=== PATIENT | female | born 1965 | race Caucasian/White ===

== ENCOUNTER → 2020-04-30 10:41 | Outpatient (CLI) | payer BC, SELFPAY ==
--- NOTE | ~2020-04-30 | XR_ITS ---
XR hip LT min 2V DATE: 04/30/2020 10:59 INDICATION: Left hip pain TECHNIQUE: AP, lateral, crosstable lateral views of left hip COMPARISON: None FINDINGS: No fracture or dislocation, avascular necrosis or bone destruction of the left hip. Mild le ft hip osteoarthritis. Normal alignment at the left sacroiliac joint and pubic symphysis. IMPRESSION: Mild left hip osteoarthritis Reviewed, dictated and finalized at location B. CIPAL IOS DEVELOPER
== END ==
PROVIDERS: PCP Internal Medicine; Visit Provider Internal Medicine
DX: S79.812A Other specified injuries of left hip, initial encounter (principal); M16.12 Unilateral primary osteoarthritis, left hip; W19.XXXA Unspecified fall, initial encounter
CPT/HCPCS: 73502

== ENCOUNTER 2022-02-08 07:00 | Outpatient (NON) | payer BC, SELFPAY | END 2022-02-08 07:01 | disposition home or self-care (01) | LOC: ANHLAB 02-10 14:16 | PROVIDERS: PCP Internal Medicine | DX: D10.39 Benign neoplasm of other parts of mouth (principal) | CPT/HCPCS: 88305 ==

== ENCOUNTER 2022-04-30 08:01 | Outpatient (CLI) | payer BC, SELFPAY ==
--- NOTE | ~2022-04-30 | US_ITS ---
EXAMINATION: US pelvic complete w TV DATE: 04/30/2022 10:48 INDICATION: Right lower quadrant pain. History of breast cancer. Comparison:No prior studies for comparison. TECHNIQUE: Multiple transabdominal and endovaginal sonographic images of the pelvis performed. FINDINGS: The uterus measures 6.5 x 4.4 x 3 cm. The endometrial complex measures 3 mm. The ovaries are not identified due to overlying bowel gas and patient body habitus. No adnexal masses or fluid collections are seen. There is no free fluid in the pelvis. There are no abnormal masses seen on either side. IMPRESSION: 1. Unremarkable pelvic ultrasound. Reviewed, dictated and finalized at location A. N ELECTRONIC TECHNICIAN
--- NOTE | ~2022-04-30 | US_ITS ---
EXAMINATION: US_ABDRLQ_US DATE: 04/30/2022 08:55 INDICATION: Right lower quadrant abdominal pain. TECHNIQUE: Multiple transabdominal sonographic images of the abdomen were obtained. COMPARISON: None. FINDINGS: There is no abnormal mass in the right lower quadrant of the abdomen. The appendix is not identified. IMPRESSION: 1. Appendix not identified. Reviewed, dictated and finalized at location A. ING SPECIALIST IMPRESSION: 1. Appendix not identified.
== END 2022-04-30 08:02 | disposition home or self-care (01) ==
PROVIDERS: PCP Internal Medicine; Visit Provider Nurse Practitioner Family
DX: R10.31 Right lower quadrant pain (principal); Z85.3 Personal history of malignant neoplasm of breast
CPT/HCPCS: 76705; 76830; 76856

== ENCOUNTER 2022-07-08 00:25 | Day surgery (SDC) | payer BC, SELFPAY ==
[2022-05-31 15:08] VITALS: BMI 27.5
[2022-06-27 15:08] VITALS: BMI 27.1
--- NOTE | 2022-07-07 15:02 | PM.HPGS ---
History of Present Illness History of Present Illness Consent: Risks, benefits, and alternatives have been discussed and questions answered. Patient agrees to proceed with procedure. Chief complaint: RLQP Narrative: Elza Morin is a 56 year old female Referred for investigation of right lower quadrant pain in to rule out inflammatory bowel disease. She has had no weight loss or significant change in bowel habits. The pain began about 1 month ago. Her last colonoscopy was 8 years ago. Review of Systems Review of Systems: All systems reviewed & are unremarkable except as noted in HPI and below PMFSH Past Medical History Medical History Abdominal discomfort in right lower quadrant Breast cancer Hx of breast cancer Hypercholesteremia Postmenopausal Screening for colon cancer Screening for osteoporosis Serum calcium elevated Serum potassium elevated Vitamin D deficiency, unspecified Surgical History Surgical History H/O partial mastectomy 2012 Family History Family History Father Hypertension Mother Family history of elevated blood lipids Other Family history of cardiovascular disease Social History Social History Smoking status: Never smoker Alcohol intake: never Substance use: never Substance use type: does not use Lack of Transportation: No Lack of Food: Never True Current Housing: I Have Housing Concerned About Future Housing: No Difficulty Paying Gas/Electric Bills: No Difficulty Paying for Meds: No Currently Unemployed: No Education: Associate Degree Difficulty w/ Childcare or Family Care: No Living arrangements: with family Gender identity (if verbalized by the patient): Female Sexual Orientation (if Verbalized by the Patient): Straight or Heterosexual Spiritual care concerns: No Meds Home Medications and Allergies Home Medications Medication Instructions Recorded Confirmed Type aspirin 81 mg tablet,delayed 81 mg PO DAILY 03/26/20 05/31/22 History release cholecalciferol (vitamin D3) 50 50 mcg PO DAILY 03/26/20 05/31/22 History mcg (2,000 unit) capsule exemestane 25 mg tablet (Aromasin) 25 mg PO DAILY 03/26/20 05/31/22 History glucosamine-chondroitin 250 mg-200 2 tablet PO ONCE 03/26/20 05/31/22 History mg tablet (Osteo Bi-Flex) krill oil 1,000 mg-om3 130 mg-dha 1 cap PO DAILY 03/26/20 05/31/22 History 40 mg-epa 80 bz-ik0-pkf-astax cap multivitamin-ferrous 1 tablet PO DAILY 03/26/20 05/31/22 History fumarate-folic acid 18 mg-400 mcg tablet (Centrum Complete) atorvastatin 10 mg tablet See Rx Instructions .Route 03/16/22 05/31/22 Rx .COMPLEX #90 tabs Allergies Allergy/AdvReac Type Severity Reaction Status Date / Time No Known Allergies Allergy Verified 07/08/22 08:30 Exam Const: General: alert Orientation/consciousness: patient oriented x3 Resp: Auscultation: clear to auscultation bilaterally Cardio: Rhythm: regular rhythm GI: GI Palp: Yes Soft to palpation and No Tenderness to palpation present (GI) Neuro: General: patient oriented x3 Assessment and Plan Assessment and plan (1) Abdominal discomfort in right lower quadrant: Code(s): R10.31 - Right lower quadrant pain Status: Acute Assessment and Plan: Colonoscopy with possible biopsy or polypectomy or cautery or injection of substances.
[2022-07-08 08:31] VITALS: BP 120/80; PULSE 90; RESP 19; TEMP 36.2; O2SAT 100
[2022-07-08] MEDS: LACTATED RINGERS 1,000 ML 150 ML IV CONT (08:44)
--- NOTE | 2022-07-08 08:59 | WPDANESEPPF ---
Anes - Initial Pre Proc Eval Procedure: Operation Date: 07/08/22 09:45 Proposed Procedures p Colonoscopy - Óscar Arambula MD Date/Time: 07/08/22 08:59 Surgeon: Óscar Arambula MD Pre Op Diagnosis: RLQP Patient Data Age: 56 Gender: F Height: 1.65 m Weight: 75.4 kg Last Vital Signs Temp 36.2 C L 07/08/22 08:31 Pulse 90 07/08/22 08:31 Resp 19 07/08/22 08:31 BP 120/80 07/08/22 08:31 Pulse Ox 100 07/08/22 08:31 O2 Del Method Room Air 07/08/22 08:31 Allergies Allergy/AdvReac Type Severity Reaction Status Date / Time No Known Allergies Allergy Verified 07/08/22 08:30 Home Medications Medication Instructions Recorded Confirmed Type aspirin 81 mg tablet,delayed 81 mg PO DAILY 03/26/20 05/31/22 History release cholecalciferol (vitamin D3) 50 50 mcg PO DAILY 03/26/20 05/31/22 History mcg (2,000 unit) capsule exemestane 25 mg tablet (Aromasin) 25 mg PO DAILY 03/26/20 05/31/22 History glucosamine-chondroitin 250 mg-200 2 tablet PO ONCE 03/26/20 05/31/22 History mg tablet (Osteo Bi-Flex) krill oil 1,000 mg-om3 130 mg-dha 1 cap PO DAILY 03/26/20 05/31/22 History 40 mg-epa 80 fh-dx2-yan-astax cap multivitamin-ferrous 1 tablet PO DAILY 03/26/20 05/31/22 History fumarate-folic acid 18 mg-400 mcg tablet (Centrum Complete) atorvastatin 10 mg tablet See Rx Instructions .Route 03/16/22 05/31/22 Rx .COMPLEX #90 tabs Patient hx anesthesia problems: none Family hx anesthesia problems: none Results Review: All pre-operative results and documents have been reviewed as part of the pre-operative evaluation. [facility] Past Medical History Medical History Abdominal discomfort in right lower quadrant Breast cancer Hx of breast cancer Hypercholesteremia Postmenopausal Screening for colon cancer Screening for osteoporosis Serum calcium elevated Serum potassium elevated Vitamin D deficiency, unspecified Surgical History Surgical History H/O partial mastectomy 2012 Family History Family History Father Hypertension Mother Family history of elevated blood lipids Other Family history of cardiovascular disease Social History Social History Smoking status: Never smoker Alcohol intake: never Substance use: never Substance use type: does not use Lack of Transportation: No Lack of Food: Never True Current Housing: I Have Housing Concerned About Future Housing: No Difficulty Paying Gas/Electric Bills: No Difficulty Paying for Meds: No Currently Unemployed: No Education: Associate Degree Difficulty w/ Childcare or Family Care: No Living arrangements: with family Gender identity (if verbalized by the patient): Female Sexual Orientation (if Verbalized by the Patient): Straight or Heterosexual Spiritual care concerns: No Anes - Eval Final PreProcedure Day of Procedure 07/08/22 08:59 Patient weight: overweight Heart: regular rate and rhythm Lungs: clear to auscultation Airway: Mallampati scale class II Last oral intake: >/= 8 hours ASA classification: II Emergent: no Anesthetic plan: proceed Anesthesia type and monitoring: general GIVS and standard monitoring Results Review: All pre-operative results and documents have been reviewed as part of the pre-operative evaluation. Informed Consent: The patient's anesthetic plan and its attendant risks and benefits were discussed with the patient/family/POA. Questions were solicited and answers provided to the satisfaction of the patient/family/POA.
[2022-07-08 09:30] VITALS: BP 103/65; PULSE 75; RESP 19; O2SAT 100
[2022-07-08 09:40] VITALS: BP 108/66; PULSE 79; RESP 20; O2SAT 100
[2022-07-08 09:50] VITALS: BP 122/100; PULSE 77; RESP 17; O2SAT 100
== END 2022-07-08 10:10 | disposition home or self-care (01) ==
PROVIDERS: PCP Internal Medicine; Visit Provider Internal Medicine Gastroenterology
PROC: 0DJD8ZZ Inspection of Lower Intestinal Tract, Via Natural or Artificial Opening Endoscopic (ICD-10-PCS; CPT 45378; principal; 2022-07-08 09:45)
DX: K57.30 Diverticulosis of large intestine without perforation or abscess without bleeding (principal); K64.8 Other hemorrhoids; E78.00 Pure hypercholesterolemia, unspecified; E55.9 Vitamin D deficiency, unspecified; Z85.3 Personal history of malignant neoplasm of breast; Z79.811 Long term (current) use of aromatase inhibitors; Z79.82 Long term (current) use of aspirin
CPT/HCPCS: 45378; J2704; J7120

== ENCOUNTER 2024-04-09 10:40 | Outpatient (CLI) | payer BC, SELFPAY ==
--- NOTE | ~2024-04-09 | US_ITS ---
EXAMINATION: US art doppler w press LE DATE: 04/09/2024 14:17 CORPORATE RECYCLING MANAGER INDICATION: Peripheral arterial disease TECHNIQUE: Segmental pressures and plethysmographic and Doppler waveforms of the brachial and lower e xtremity arteries were obtained. COMPARISON: None. FINDINGS: Left brachial artery pressures 1 34 mmHg. Right pressure not obtained due to history of right breast cancer. The right thigh pressure index is 1.41 (normal > 1.2). The right ankle-brachial index (ANDRA) is 1.12 ( normal >= 0.9-1.0). The right great toe-brachial index (TBI) is 0.57 (normal >= 0.60). The right lowe r extremity segmental pressure gradients are normal (normal gradients <= 20-30 mmHg between adjacent levels on the same leg or the same levels on the two legs). Arterial Doppler waveforms are biphasic. The left thigh pressure index is 1.42. The left ANDRA is 1.1. The left TBI is 0.6. The left lower extre mity segmental pressure gradients are normal. Arterial Doppler waveforms are biphasic. IMPRESSION: 1. Normal ankle-brachial indices. 2: Mildly decreased right toe brachial index consistent with peripheral arterial disease. Reviewed, dictated and finalized at location A. ORATE RECYCLING MANAGER IMPRESSION: 1. Normal ankle-brachial indices. 2: Mildly decreased right toe brachial index consistent with peripheral arteri al disease.
--- OUTSIDE RECORDS SUMMARY | 2024-04-09 11:48 | XMS_ITS | Clinical Summary ---
Author Organization [facility] Address [address] [place] [address] Care Team Providers Care Cash Posting Clerk Name Role Phone Eder sAhford MD Primary Care Provider [phone] Shy Romero PROVIDER RELATIONS COORDINATOR Unavailable +1- [phone] Allergies No known active allergies Medications aspirin 81 mg tablet 12/27/2016Aspir 81, po solid 81 mg Tablet, delayed release (enteric coated)POdailyC urrent Medication 7 Active cholecalciferol (VITAMIN D-3) 2,000 unit tablet TAKE 2000 UNIT Takes 1tab daily Active FDUYN-[id number]-5-D ZK-POF-LVAHZY ORAL 1 capsule by mouth once a day Active bx-Nl-joj-iron- folic-phytostrl 3-200-400 mg-mcg-mg tablet Take 1 tablet by mouth daily Active atorvastatin (LIPITOR) 10 mg tablet 9 Active exemestane (AROMASIN) 25 mg tabletIndicatio ns:History of malignant neoplasm of breast Take 1 tablet (25 mg total) by mouth daily 90 tablet 4 Active Active Problems Problem Noted Date Diagnosed Date 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) 08/20/2016 Dyslipidemia 05/20/2016 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 [place] [address] Zari Marks NP History of malignant neoplasm of breast (Primary Dx); Breast cancer screening, high risk patient 01/23/2024 Telephone [facility] Surgery [address] [place] [address] Zari Marks NP from Last 3 Months Immunizations Name Administration Dates Next Due Influenza, Trivalent, IM (MDV) 03/22/2012 Influenza, Unspecified 12/27/2017,2016,02/23/2016,2014,01/08/2014,01/23/2013 Moderna SARS-CoV-2 Monovalen t Vaccination (12+ YRS) 04/19/2020,03/22/2020 Moderna Sars-cov-2 Monovalen t Booster Vaccination .25 Ml dose (12+ YRS) 03/12/2021 ZOSTER LIVE 12/27/2016 Surgical History Surgery Date Site/Laterality Comments IR FINE NEEDLE ASPIRATION W IMAGE GUIDANCE 11/28/2012 N/A COLONOSCOPY BREAST BIOPSY 03/14/2012 - 03/13/2013 Right malignant BREAST BIOPSY 03/14/2012 - 03/13/2013 Left benign AUGMENTATION MAMMAPLASTY 03/14/1997 - 03/13/1998 Bilater al BREAST LUMPECTOMY 03/14/2012 - 03/13/2013 Right Medical History Medical History Date Comments Dyslipidemia Breast cancer (HCC) 2012 History of radiation therapy History of chemotherapy Family History Medical History Relation Name Comments Pancreatic cancer Maternal Grandmother Breast cancer Mother Breast cancer Sister Relation Name Status Comments Maternal Grandmother Mother Sister Social History Tobacco Use Types Packs/Day Years Used Date Smoking Tobacco: Never Smokeless Tobacco: Never Tobacco Cessation:Counseling Given: Not Answered Alcohol Use Standard Drinks/Week Comments Not Currently 0 (1 standard drink = 0.6 oz pur e alcohol) rare AUDIT-C Answer Date Recorded Frequency of Alcohol Consumption Never 07/17/2018 Average Number of Drinks Not on file 019 Frequency of Binge Drinking Not on file 08/2018 Comments No Sex and Gender Information Value Date Recorded Sex Assigned at Not on file Legal Sex Female 10:33 AM WASH HOUSE WORKER Gender Identity Female 07/28/2019 8:33 PM CDT Sexual Orientation Straight 07/16/2018 9: 05 AM CDT Obstetrics History Para Term AB IAB SAB Ectopic Multiple Livin g Live Births 4 3 3 Date Outcome GA Total Labor Labor/2nd/3rd Weight Sex Type Anes PTL Francisca A1 A5 Name Clin Term Term Term Last Filed Vital Signs Vital Sign Reading Time Taken Comments Blood Pressure 106/70 07/29/2023 10:52 AM CDT Pulse 81 07/29/2023 10:52 AM CDT Temperature 36.6 ??C (97.9 ??F) 07/29/2023 1 0:52 AM CDT Respiratory Rate 18 07/29/2023 10:5 2 AM CDT Oxygen Saturation 95% 07/29/2023 10: 52 AM CDT Inhaled Oxygen Concentration - - Weight 76.7 kg (169 lb 3.2 oz) 07/29/19 24 10:52 AM CDT with shoes Height 165.1 cm (5' 5 ) 01/21/2023 10:0 0 AM WASH HOUSE WORKER Body Mass Index 28.16 01/21/2023 10:00 AM WASH HOUSE WORKER Plan of Treatment Health Maintenance Due Date Last Done Comments Cervical Cancer Screening 1965 Colon Cancer Screening-Colonoscopy 1965 Depression Screening 1965 Hepatitis C Screening 1965 Pneumococcal vaccine <65 (1 of 2 - PCV) 10/16/1971 DTaP/Tdap/Td Vaccine (1 - Tdap) 1976 Hepatitis B Screening 10/16/1983 Regular Well Visit/Exam 18-64 10/16/1983 Zoster Vaccine (1 of 2) 02/21/2017 12/27/2016 Covid-19 Vaccine (3 - Modern a risk series) 04/09/2021 03/12/2021, 04/19/2020, 03/22/2020 Influenza Vaccine (#1) 2023 8, 12/27/2016, 02/23/2016, Additional history exists Breast Cancer Screening-Mammogram 12/08/2024 12/09/2023, 10/01/2022, 09/04/2021, Additional history exists Procedures Procedure Name Priority Date/Time Associated Diagnosis Comments SCREENING MAMMOGRAM BILATERAL W JOSUE W IMPLANTS Schedule Routine, Read Routine (OP Routine) 12/09/2023 3:15 PM CDT History of malignant neoplasm of breast from Last 3 Months or Most Recently Relevant to Health Maintenance Results * Screening Mammogram Bilateral w Josue w Implants (12/09/2023 3:15 PM CDT) Anatomical Region Laterality Modality Breast Bilateral Mammography Narrative 12/12/2023 10:45 AM CDT Mammogram Technique: Bilateral Digital Breast Tomosynthesis, Bilateral C-view 2D Screening mammogram. ??Views obtained: ??bilateral craniocaudal; bilateral craniocaudal implant displaced; bilateral mediolateral oblique; and bilateral mediolateral oblique implant displaced. ??Computer Aided Detection was performed. Mammogram Findings: The present examination has been compared to prior imaging studies performed at [facility] on 08/22/2020, 09/04/2021 and 10/01/2022. There are scattered areas of fibroglandular density. There are bilateral implants. There is no suspicious abnormality in either breast. Impression: There is no mammographic evidence of malignancy. Annual screening mammography is recommended. OVERALL FINAL ASSESSMENT: BI-RADS CATEGORY 1: ??Negative. Procedure Note Allyson Hoover MD - 12/12/2023 Mammogram Technique: Bilateral Digital Breast Tomosynthesis, Bilateral C-view 2D Screening mammogram. Views obtained: bilateral craniocaudal; bilateralcraniocaudal implant displaced; bilateral mediolateral oblique; and bilateral mediolateral oblique implant displaced. Computer Aided Detection was performed. Mammogram Findings: The present examination has been compared to prior imaging studies performed at [facility] on 08/22/2020, 09/04/2021 and 10/01/2022. There are scattered areas of fibroglandular density. There are bilateral implants. There is no suspicious abnormality in either breast. Impression: There is no mammographic evidence of malignancy. Annual screening mammography is recommended. OVERALL FINAL ASSESSMENT: BI-RADS CATEGORY 1: Negative. Analilia Sifuentes NP IMG MAMMO PROCEDURES Fin al Result from Last 3 Months or Most Recently Relevant to Health Maintenance Insurance [employer] [place] [employer] [place] [facility] ACCESS [employer] Care Teams Cash Posting Clerk Relationship Specialty Start Date End Date Eder Ashford MD PCP - General Family Practice 09/23/22 Shy Romero NP [address] [place] [id number] Nurse Practitioner Medical Oncology 01/18/23
--- OUTSIDE RECORDS SUMMARY | 2024-04-09 11:48 | XMS_ITS | Encounter Summary ---
Author Organization [facility] Address [address] [place] [address] Phone Care Team Providers Care Mussel Opener Name Role Phone Eder Ashford MD Primary Care Provider [phone] Shy Romero CLINICAL LEADER Unavailable [phone]- [phone] Reason for Visit * Reason Onset Date Comments Scheduling Appointments 03/21/2024 Encounter Details Date Type Department Care Team (Late st Contact Info) Description 03/21/2024 Telephone [facility] Dermatology [address] [place] [address] Shaneka Meza CNA Scheduling Appointments Social History Tobacco Use Types Packs/Day Years Used Date Smoking Tobacco: Never Smokeless Tobacco: Never Alcohol Use Standard Drinks/Week Comments Not Currently [...] on file Legal Sex Female 10:33 AM TUBE OPERATOR Gender Identity Female 07/28/2019 8:33 PM CDT Sexual Orientation Straight 07/16/2018 9: 05 AM CDT documented as of this encounter Miscellaneous Notes * Telephone Encounter - Shaneka Meza CNA - 03/21/2024 2:58 PM CST Pt is asking for a diff appt for hair loss on a Tuesday she didn't want to do the normal times of 7:00-7:15-pls call to offer she had to cancel yesterday due to weather OPERATOR documented in this encounter Plan of Treatment Not on file documented as of this encounter Visit Diagnoses Not on filedocumented in this encounter Care Teams Mussel Opener Relationship Specialty Start Date End Date Eder Ashford MD PCP - General Family Practice 09/23/22 Shy Romero NP [address] [place] [address] Nurse Practitioner Medical Oncology 01/18/23 documented as of this encounter
--- OUTSIDE RECORDS SUMMARY | 2024-04-09 11:48 | XMS_ITS | Encounter Summary ---
Author Organization [facility] Care Team Providers Care Tow Motor Operator Name Role Phone Alexandr Gamez MD Primary Care Provider [phone] Bruce Starr MD, [place] Unavailable [phone]- [phone] Jg Du DO Primary Care Provider [phone] Andrew De La Garza MD PhD Unavailable Eder Ashford MD Primary Care Provider [phone] Shy Romero BUFFET RUNNER Unavailable [phone] Encounter Details Date Type Department Care Team (Latest Contact Info) Description 05/13/2016 Orders Only [facility] CLINCONV ProviderMendoza MD [address] [place] [address] Social History Tobacco Use Types Packs/Day Years Used Date Smoking Tobacco: Never Assessed Comments Unknown Sex and Gender Information Value Date Recorded Sex Assigned at Not on file Legal Sex Female 10:33 AM VOICE INSTRUCTOR Gender Identity Female 07/28/2019 8:33 PM CDT Sexual Orientation Straight 07/16/2018 9: 05 AM CDT documented as of this encounter Plan of Treatment Not on file documented as of this encounter Procedures Procedure Name Priority Date/Time Associated Diagnosis Comments CARDIOLOGY REPORT 05/13/2016 12: 00 AM VOICE INSTRUCTOR documented in this encounter Results * CARDIOLOGY REPORT (05/13/2016 12:00 AM VOICE INSTRUCTOR) Anatomical Region Laterality Modality Other Narrative 05/13/2016 12:00 AM VOICE INSTRUCTOR Ordered by an unspecified provider. us Historical Provider [facility] Final Result documented in this encounter Visit Diagnoses Not on filedocumented in this encounter Care Teams Tow Motor Operator Relationship Specialty Start Date End Date Alexandr Gamez MD [address] [place] [address] PCP - General 06/25/16 08/21/20 Jg Du DO [address] [place] [address] PCP - General 08/22/20 09/22/22 Eder Ashford MD [address] [place] [address] PCP - General Family Practice 09/23/22 Parish Barrera Jr., MD [address] [place] [address] Medical Oncologist/Composite Boat Builder Medical Oncology 11/22/18 01/17/23 Andrew De La Garza MD PhD [address] [place] [address] Medical Oncologist/Composite Boat Builder Medical Oncology 06/07/22 01/17/23 Shy Romero NP [address] [place] [address] Nurse Practitioner Medical Oncology 01/18/23 documented as of this encounter
--- OUTSIDE RECORDS SUMMARY | 2024-04-09 11:48 | XMS_ITS | Patient Health Record ---
Author Organization [facility] Address [address] [place] [address] Care Team Providers Care J2Ee Software Engineer Name Role Phone Som Tilley Primary Care Provider [phone] Reason For Referral No Information Immunizations Vaccine Route Administration Date Status Comme nts Influenza, virus vaccine, trivalent, preservative free Unknown 03/09/2024 Administered COVID-19 Moderna Booster IM Intramuscular 03/12/2021 Administered COVID-19 Moderna 1ST IM Intramuscular 03/22/2020 Administered COVID-19 Moderna 1ST IM Intramuscular 04/19/2020 Administered EUA date 02/2020. Screening reviewed and consent signed. Patient tolerated well. Plan Of Treatment No Information
--- OUTSIDE RECORDS SUMMARY | 2024-04-09 11:48 | XMS_ITS | Referral Summary ---
Author Organization [facility] Address [address] [place] [address] Care Team Providers Care Pumper Gager Name Role Phone Eder Ashford MD Primary Care Provider [phone] Shy Romero TEST CELL TECHNICIAN Unavailable [phone] Encounters Date Type Department Care Team Description 03/21/2024 Telephone [facility] Dermatology [address] [place] [address] [address] [place] [id number] Shaneka Meza CNA Scheduling Appointments 01/23/2024 Orders Only [facility] Surgery [address] [place] [address] Zari Marks NP History of malignant neoplasm of breast (Primary Dx); Breast cancer screening, high risk patient 01/23/2024 Telephone [facility] Surgery [address] [place] [address] Zari Marks NP from Last 3 Months Allergies No known active allergies Medications aspirin 81 mg tablet 12/27/2016Aspir 81, po solid 81 mg Tablet, delayed release (enteric coated)POdailyC urrent Medication 7 Active cholecalciferol (VITAMIN D-3) 2,000 unit tablet TAKE 2000 UNIT Takes 1tab daily Active AEZEL-NMOSM-3-D AM-KOY-AYXEOI ORAL 1 capsule by mouth once a day Active yc-Sl-yfu-iron- folic-phytostrl 3-200-400 mg-mcg-mg tablet Take 1 tablet [...] breast in female, estrogen receptor positive 09/02/2017 Immunizations Name Administration Dates Next Due Influenza, Trivalent, IM (MDV) 03/22/2012 Influenza, Unspecified 12/27/2017,2016,02/23/2016,2014,01/08/2014,01/23/2013 Moderna SARS-CoV-2 Monovalen t Vaccination (12+ YRS) 04/19/2020,03/22/2020 Moderna Sars-cov-2 Monovalen t Booster Vaccination .25 Ml dose (12+ YRS) 03/12/2021 ZOSTER LIVE 12/27/2016 Social History Tobacco Use Types Packs/Day Years [...] on file Legal Sex Female 10:33 AM ELECTRICIAN TECHNICIAN Gender Identity Female 07/28/2019 8:33 PM CDT Sexual Orientation Straight 07/16/2018 9: 05 AM CDT Last Filed Vital Signs Vital Sign Reading [...] (5' 5 ) 01/21/2023 10:0 0 AM ELECTRICIAN TECHNICIAN Body Mass Index 28.16 01/21/2023 10:00 AM ELECTRICIAN TECHNICIAN Plan of Treatment Not on file Procedures Procedure Name Priority Date/Time Associated Diagnosis [...] compared to prior imaging studies performed at [facility] on 08/22/2020, 09/04/2021 and 10/01/2022. There [...] compared to prior imaging studies performed at [facility] on 08/22/2020, 09/04/2021 and 10/01/2022. There [...] Most Recently Relevant to Health Maintenance Insurance [employer] [place] [employer] [place] [employer] [employer] CHOICE [place] CHOICE [place] Care Teams Pumper Gager Relationship Specialty Start Date End Date Eder Ashford MD PCP - General Family Practice 09/23/22 Shy Romero NP [address] [place] [address] Nurse Practitioner Medical Oncology 01/18/23
--- OUTSIDE RECORDS SUMMARY | 2024-04-09 11:48 | XMS_ITS | Encounter Summary ---
Author Organization [facility] Facility Care Team Providers Care Coffee Maker Name Role Phone Alexandr Gamez MD Primary Care Provider [phone] Bruce Starr MD, Parish Unavailable [phone]- [phone] Jg Du DO Primary Care Provider [phone] Andrew De La Garza MD PhD Unavailable Eder Ashford MD Primary Care Provider [phone] Shy Romero HEAD OF ETHICS AND COMPLIANCE Unavailable [phone] Encounter Details Date Type Department Care Team (Latest Contact Info) Description 08/20/2016 Orders Only [facility]INCON[facility] ProviderMendoza MD [address] [place] [id number] Social History Tobacco Use Types Packs/Day Years Used Date Smoking Tobacco: Never Assessed Comments Unknown Sex and Gender Information Value Date Recorded Sex Assigned at Not on file 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 us Historical Provider Final Res ult documented in this encounter Visit Diagnoses Not on filedocumented in this encounter Care Teams Coffee Maker Relationship Specialty Start Date End Date Alexandr Gamez MD [address] [place] [address] PCP - General 06/25/16 08/21/20 Jg Du DO [address] [place] [id number] PCP - General 08/22/20 09/22/22 Eder Ashford MD [address] [place] [id number] PCP - General Family Practice 09/23/22 Parish Barrera Jr., MD [address] [place] [id number] Medical Oncologist/Manufacturing Recruiter Medical Oncology 11/22/18 01/17/23 Andrew De La Garza MD PhD [address] [place] [address] Medical Oncologist/Manufacturing Recruiter Medical Oncology 06/07/22 01/17/23 Shy Romero, ELMA [address] [place] [id number] Nurse Practitioner Medical Oncology 01/18/23 documented as of this encounter
--- OUTSIDE RECORDS SUMMARY | 2024-04-09 11:48 | XMS_ITS | Encounter Summary ---
Author Organization [facility] Healthcare Address [address] [place] [address] Care Team Providers Care Deicer Finisher Name Role Phone Alexandr Gamez MD Primary Care Provider [phone] Bruce Starr MD, Parish Unavailable [phone] Jg Du DO Primary Care Provider [phone] Andrew De La Garza MD PhD Unavailable Eder Ashford MD Primary Care Provider [phone] Shy Romero [employer] Unavailable [phone] Encounter Details Date Type Department Care Team (Late st Contact Info) Description 11/15/[address] 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 Gender Identity Female 07/28/2019 8:33 PM CDT Sexual Orientation Straight 07/16/2018 9: 05 AM CDT documented as of this encounter Plan of Treatment Not on file documented as of this encounter Visit Diagnoses Not on filedocumented in this encounter Care Teams Deicer Finisher Relationship Specialty Start Date End Date Alexandr Gamez MD [address] [place] [address] PCP - General 06/25/16 08/21/20 Jg Du DO [address] [place] [address] PCP - General 08/22/20 09/22/22 Eder Ashford MD [address] [place] [id number] PCP - General Family Practice 09/23/22 Parish Barrera Jr., MD [address] [place] [id number] Medical Oncologist/Behavioral Health Care Coordinator Medical Oncology 11/22/18 01/17/23 Andrew De La Garza MD PhD [address] [place] [phone] Medical Oncologist/Behavioral Health Care Coordinator Medical Oncology 06/07/22 01/17/23 Shy Romero NP [address] [place] [address] Nurse Practitioner Medical Oncology 01/18/23 documented as of this encounter
== END 2024-04-09 10:41 | disposition home or self-care (01) ==
PROVIDERS: PCP Nurse Practitioner Family; Visit Provider Podiatrist Foot & Ankle Surgery
DX: I73.9 Peripheral vascular disease, unspecified (principal)
CPT/HCPCS: 93923